=== PATIENT | female | born 1935 | race Caucasian/White ===

== ENCOUNTER → 2017-01-05 | Outpatient (CLI) | payer MEDICARE, BC ==
[~2017-01-05] MED LIST: AMARYL2 MG PO; ANEXSIA 5/325 M1 TA1 PO; ASPIRIN ENTERI325 M1 PO; ASPIRIN PO; ASPIRIN81 M1 PO; ASPIRIN81 MG PO; ATENOLOL PO; ATENOLOL25 MG PO; ATENOLOL50 MG; ATENOLOL50 MG PO; AUGMENTIN PO; BACITRACIN30 GM TOP; BENADRYL PO; DIAZEPAM PO; DIFLUCAN PO; DIOVAN HCT 160-1 TAB PO; HYZAAR 100-12.51 TAB; HYZAAR 100-12.51 TAB PO; LEVOTHROID88 MCG PO; METFORMIN HCL500 M1 PO; PLAVIX PO; SYNTHROID PO; SYNTHROID88 MCG PO; VICODIN 5/500 T1 TAB PO
--- NOTE | ~2017-01-05 | US5 ---
[facility] A Service of [facility] & [facility] RADIOLOGY TEXT RESULTS PATIENT: YUKI RUCKER LOCATION: [facility] : 35 UNIT #: [id number] AGE: [address]: John Nugent MD SEX: F ORDER DR: [id number] [facility] [address] [place], [place] [address] [id number] O MR#: [id number] Acc #: [id number] NAME: YUKI RUCKER : 1935 SEX: F STUDY DATE/TIME: 01/05/2017 10:53 UNIT: [facility] ROOM: STUDY DESCRIPTION: US Abdominal Complete Attending Physician: John Nugent M.D. Referring Physician: John Nugent M.D. Ordering Physician: John Nugent M.D. Primary Care Physician: John Nugent M.D. MEDICAL IMAGING REPORT This report is preliminary unless electronic signature is present EXAM Abdominal ultrasound. INDICATION Pain and fullness with pressure on the ribs for 6 months. Patient also reports some nausea. TECHNIQUE Schwartz-scale, color Doppler and spectral Doppler waveform analysis was performed through the patient's abdomen. FINDINGS This exam is essentially nondiagnostic due to overlying bowel gas and presumably some overlying shadowing ribs. The patient's aorta cannot be assessed. There is limited visualization of the pancreas, although the visualized portions do appear unremarkable. Again, there is poor penetration of the liver. Obvious mass lesion is not is identified, but certainly cannot be excluded on the basis of this study. There is no intra or extrahepatic biliary dilatation. Main portal vein is patent. The right kidney, again, is very difficult to fully assess, although, I do not see any hydronephrosis. No stones are seen within the gallbladder. Left kidney and spleen are also poorly assessed on this examination. IMPRESSION Essentially nondiagnostic examination due to overlying bowel gas and presumably some shadowing ribs. I would suggest further evaluation with CT of the abdomen and pelvis preferably with oral and intravenous contrast. Dictated by... Oma Pulido M.D. THIS IS AN ELECTRONICALLY VERIFIED REPORT [facility]. [facility] A Service of [facility] & [facility] RADIOLOGY TEXT RESULTS PATIENT: YUKI RUCKER LOCATION: [facility] : 35 UNIT #: [id number] AGE: [address]: John Nugent MD SEX: F ORDER DR: Oma Pulido M.D. at 01/05/2017 4:57 PM AFF/jt TD: 01/05/2017 16:18 JOB #: [id number] MEDICAL IMAGING REPORT Page 1 of 1 COPY
== END | disposition home or self-care (01) ==
LOC: CGUS 10:27
DX: R10.11 Right upper quadrant pain (principal); R11.0 Nausea; R14.0 Abdominal distension (gaseous)
CPT/HCPCS: 76700

== ENCOUNTER → 2017-01-14 | Outpatient (CLI) | payer MEDICARE, BC ==
--- NOTE | ~2017-01-14 | CT4 ---
[facility] A Service of [facility] & [facility] RADIOLOGY TEXT RESULTS PATIENT: YUKI RUCKER LOCATION: [facility] : 35 UNIT #: [id number] AGE: [address]: John Nugent MD SEX: F ORDER DR: [id number] [place] [id number] P MR#: [id number] Acc #: [id number] NAME: YUKI RUCKER : 1935 SEX: F STUDY DATE/TIME: 01/14/2017 13:03 UNIT: [facility] ROOM: STUDY DESCRIPTION: CT Abd and Pelv Wo Cont Attending Physician: John Nugent M.D. Ordering Physician: John Nugent M.D. Primary Care Physician: John Nugent M.D. MEDICAL IMAGING REPORT This report is preliminary unless electronic signature is present. EXAM CT of the abdomen and pelvis without contrast INDICATION Bloating, pain, and constipation for 6 months. Pain on the right side. TECHNIQUE CT of the abdomen and pelvis was performed without contrast. Coronal and sagittal reformatted images were obtained. This CT exam was performed with one or more of the following radiation dose reduction techniques: automatic exposure control, adjustment of mA and/or kV according to patient size, and iterative reconstruction. COMPARISON Comparison with 04/28/2007. FINDINGS The lung bases are clear. The liver, gallbladder, spleen, kidneys, adrenal glands, and pancreas are unremarkable. Redemonstrated is tortuous aneurysmal dilatation of the infrarenal abdominal aorta. On today's study, it measures 3.4 cm in AP dimension. On the study on a study from 2010, it measured 2.8 cm. Continued follow up is recommended. PELVIS: Sigmoid diverticulosis. Normal appendix. No free fluid. Bone windows demonstrate scoliosis and degenerative changes of the lumbar spine. IMPRESSION 1. Extensive sigmoid diverticulosis. 2. Redemonstrated is a tortuous infrarenal abdominal aortic aneurysm measuring 3.4 cm in greatest AP dimension. On the study from 2010, it measured 2.8 cm. Continued aortic surveillance is recommended. 3. Additional findings as described. STS. [facility] A Service of [facility] & [facility] RADIOLOGY TEXT RESULTS PATIENT: YUKI RUCK[id number] 35 UNIT #: [id number] AGE: [address]: John Nugent MD SEX: F ORDER DR: Dictated by... Moose Calixto M.D. THIS IS AN ELECTRONICALLY VERIFIED REPORT Moose Calixto M.D. at 01/15/2017 7:36 AM NATALYA/karol TD: 01/14/2017 14:23 JOB #: [id number] MEDICAL IMAGING REPORT Page 1 of 1
== END | disposition home or self-care (01) ==
LOC: SCT 12:55
DX: R10.9 Unspecified abdominal pain (principal); R14.0 Abdominal distension (gaseous); K59.00 Constipation, unspecified; K57.30 Diverticulosis of large intestine without perforation or abscess without bleeding; I71.4 Abdominal aortic aneurysm, without rupture
CPT/HCPCS: 74176

== ENCOUNTER 2017-04-13 21:02 | Emergency (ER) | payer MEDICARE, BC ==
[~2017-04-13] VITALS: Ht 149.9 cm; Wt 77.1 kg
--- NOTE | ~2017-04-13 | US85 ---
[facility] A Service of [facility] & [facility] RADIOLOGY TEXT RESULTS PATIENT: YUKI RUCKER LOCATION: SED : 35 UNIT #: [id number] AGE: [address]: Tony Palacios MD SEX: F ORDER DR: [id number] [place] [id number] E MR#: [id number] Acc #: [id number] NAME: YUKI RUCKER : 1935 SEX: F STUDY DATE/TIME: 04/13/2017 23:38 UNIT: SED ROOM: STUDY DESCRIPTION: [facility] [employer] Attending Physician: Tony Palacios M.D. Ordering Physician: Tony Palacios M.D. Primary Care Physician: John Nugent M.D. MEDICAL IMAGING REPORT This report is preliminary unless electronic signature is present. EXAM Left leg vein Doppler 04/13 23:38 INDICATIONS Left leg pain for 2 days. No trauma. TECHNIQUE Venous ultrasound examination of the left lower extremity was performed using grayscale, spectral Doppler and color flow Doppler imaging. FINDINGS The examination is negative. There is no evidence of left lower extremity deep venous thrombus from the groin to the lower calf. Visualized greater saphenous vein is also patent. IMPRESSION Negative examination. No evidence of left lower extremity deep venous thrombosis. Dictated by... Oc Reid Jr., M.D. THIS IS AN ELECTRONICALLY VERIFIED REPORT Oc Reid Jr., M.D. at 04/15/2017 4:22 AM NATO/grey TD: 04/14/2017 06:50 JOB #: [id number] MEDICAL IMAGING REPORT Page 1 of 1
--- NOTE | ~2017-04-13 | CR172 ---
[facility]. [facility] A Service of [facility] & [facility] RADIOLOGY TEXT RESULTS PATIENT: YUKI RUCKER LOCATION: SED : 35 UNIT #: [id number] AGE: [address]: Tony Palacios MD SEX: F ORDER DR: [id number] [place] [id number] E MR#: [id number] Acc #: [id number] NAME: YUKI RUCKER : 1935 SEX: F STUDY DATE/TIME: 04/13/2017 23:13 UNIT: SED ROOM: STUDY DESCRIPTION: CR Knee 3 Views Lt Attending Physician: Tony Palacios M.D. Ordering Physician: Tony Palacios M.D. Primary Care Physician: John Nugent M.D. MEDICAL IMAGING REPORT This report is preliminary unless electronic signature is present. EXAM Left knee, 04/13, 2313 hours. INDICATIONS Knee pain and swelling that started yesterday, but worsened today. No trauma. FINDINGS Three views of the left knee were obtained. Patient is osteopenic. No acute fractures are seen. 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 IMPRESSION No fracture. There is osteopenia with relatively mild osteoarthritis for age. There is also a small joint effusion. Dictated by... Oc Reid Jr., M.D. THIS IS AN ELECTRONICALLY VERIFIED REPORT Oc Reid Jr., M.D. at 04/15/2017 4:21 AM NATO/jaleel TD: 04/14/2017 06:14 JOB #: [id number] MEDICAL IMAGING REPORT Page 1 of 1
== END 2017-04-14 00:43 | disposition home or self-care (01) ==
LOC: SED 21:02
DX: M25.462 Effusion, left knee (principal); E11.9 Type 2 diabetes mellitus without complications; I48.91 Unspecified atrial fibrillation; F17.200 Nicotine dependence, unspecified, uncomplicated; Z88.8 Allergy status to other drugs, medicaments and biological substances
CPT/HCPCS: 29530; 73562; 93971; 99284